=== PATIENT | male | born 1990 | race Caucasian/White ===

== ENCOUNTER 2021-07-25 22:47 | Emergency (ER) | payer SELFPAY | END 2021-07-26 00:40 | disposition home or self-care (01) | LOC: NAV ERS 22:47 | DX: K22.2 Esophageal obstruction (principal); F17.210 Nicotine dependence, cigarettes, uncomplicated | CPT/HCPCS: 96372; 99283; J1610 ==

== ENCOUNTER 2025-06-28 08:40 | Emergency (ER) | payer SELFPAY ==
[2025-06-28] MEDS ORDERED: Mag-Al Plus 1200/1200/120 MG (30 mL) UDCUP ONE (09:26)
[2025-06-28] MEDS ORDERED: Ondansetron PF 4 MG/2 ML Vial ONE (09:26)
[2025-06-28] MEDS ORDERED: Pantoprazole 40 MG VIAL ONE (09:27)
[2025-06-28] MEDS ORDERED: Lidocaine Viscous Sol 2% 15 ml UD Cup ONE (09:27)
[2025-06-28 09:36] LABS: Hematocrit 39.4 % (42.0-52.0); Hemoglobin 15.5 g/dL (14.0-18.0); Manual Diff?? YES; Mean Corpuscular Hemoglobin 37.7 pg (27.0-31.0); Mean Corpuscular Volume 95.6 fl (78.0-98.0); Platelet Count 223 10x3/uL (130-400); Red Blood Cell (RBC) Count 4.12 mill/uL (4.70-6.10); White Blood Cell (WBC) Count 9.6 10x3/uL (4.8-10.8)
[2025-06-28 09:48] LABS: ALT (SGPT) 63 U/L (Less than 45); AST (SGOT) 95 U/L (11-34); Albumin 4.0 g/dL (3.1-4.5); Alkaline Phosphatase 116 U/L (40-110); Anion Gap 19 mmol/L (10-20); BUN (Urea Nitrogen) 7 mg/dL (8.9-20.6); Bilirubin, Total 1.7 mg/dL (0.3-1.2); Calc. Creatinine Clearance 0 mL/min (70-130); Calcium 9.0 mg/dL (7.8-10.44); Carbon Dioxide 30 mmol/L (22-29); Chloride 95 mmol/L (98-107); Globulin 3.6 g/dL (2.4-3.5); Glucose 169 mg/dL (70-105); Lipase 26 U/L (8-78); Sodium 141 mmol/L (136-145)
[2025-06-28 09:50] LABS: Potassium 2.6 mmol/L (3.5-5.1)
[2025-06-28 09:55] LABS: MDiff Complete? YES
[2025-06-28 09:56] LABS: Platelet Adequacy Comment Platelets Normal
[2025-06-28 10:39] LABS: Troponin I Less than 0.010 ng/mL (< 0.028)
[2025-06-28] MEDS ORDERED: Ketorolac Tromethamine 30 MG (1 mL) VIAL ONE (11:21)
== END 2025-06-28 12:20 | disposition home or self-care (01) ==
LOC: NAV ERS 08:40
DX: N13.2 Hydronephrosis with renal and ureteral calculous obstruction (principal); N23 Unspecified renal colic; K70.10 Alcoholic hepatitis without ascites; F10.20 Alcohol dependence, uncomplicated; R11.10 Vomiting, unspecified; E87.6 Hypokalemia; R79.89 Other specified abnormal findings of blood chemistry; F17.210 Nicotine dependence, cigarettes, uncomplicated; F17.290 Nicotine dependence, other tobacco product, uncomplicated
CPT/HCPCS: 74177; 80053; 83690; 84484; 85025; 93005; J1885; J2270; J2405; J2470; J7030